=== PATIENT | female | born 1995 | race Two or more races ===

== ENCOUNTER → 2021-03-15 12:54 | Outpatient (CLI) | payer OTHER, SELFPAY ==
[2021-03-15 10:23] VITALS: BMI 20.2
[2021-03-16 20:07] LABS: Chlamydia By Nucleic Acid AMP Negative (Negative)
[2021-03-16 21:07] LABS: Gonococcus By Nucleic Acid AMP Negative (Negative)
[2021-03-17 12:17] LABS: HPV Reflexed? NOT INDICATED
== END ==
PROVIDERS: PCP Internal Medicine; Visit Provider Nurse Practitioner Women's Health
DX: Z12.4 Encounter for screening for malignant neoplasm of cervix (principal); Z11.3 Encounter for screening for infections with a predominantly sexual mode of transmission
CPT/HCPCS: 87491; 87591; 88175; G0145